=== PATIENT | female | born 1945 | race Caucasian/White ===

== ENCOUNTER → 2023-05-03 | Outpatient (CLI) | payer OTHER ==
[2023-05-03 16:35] LABS: Bun/Creatinine Ratio 20.6 (12.0-20.0); Calcium, Blood 9.4 mg/dL (8.5-10.1); Creatinine, Blood 0.92 mg/dL (0.40-1.00); Potassium, Blood 3.7 mmol/L (3.5-5.5)
== END | disposition home or self-care (01) ==
LOC: LAB SHORT 13:50 → LAB 13:50
PROVIDERS: Family Medicine
DX: R94.4 Abnormal results of kidney function studies (principal)
CPT/HCPCS: 80048

== ENCOUNTER 2024-05-06 13:25 | Day surgery (SDC) | payer OTHER ==
[~2024-05-06] VITALS: Ht 170.2 cm; Wt 71.0 kg
[2024-05-06] MEDS ORDERED: AMLO5 (14:15)
[2024-05-06] MEDS ORDERED: ATOR10 (14:15)
[2024-05-06] MEDS ORDERED: HYDCHL25 (14:16)
[2024-05-06] MEDS ORDERED: LISI20 (14:17)
[2024-05-06] MEDS ORDERED: OMEP20ER (14:18)
[2024-05-06] MEDS ORDERED: Lactated Ringer's 1,000 ML IV ONE ×2 (15:25→15:48)
[2024-05-06] MEDS ORDERED: propofoL 50 ML IV ONE (15:48)
[2024-05-06] MEDS ORDERED: Lidocaine HCl/Pf 1% 5 ML VIAL ONE (15:48)
[2024-05-06 16:48] VITALS: BP 140/64
--- NOTE | 2024-05-06 16:51 | NUR ---
05/06/24 7416 Maritza Holland PT DECLINED REFRESHMENTS, FELT GREAT AND WANTED TO GET HOME.
== END 2024-05-06 16:35 | disposition home or self-care (01) ==
LOC: ORSCSDS 13:25
PROVIDERS: Internal Medicine Gastroenterology
PROC: 0DJ08ZZ Inspection of Upper Intestinal Tract, Via Natural or Artificial Opening Endoscopic (ICD-10-PCS; principal; 2024-05-06 14:30)
DX: R13.10 Dysphagia, unspecified (principal); K44.9 Diaphragmatic hernia without obstruction or gangrene; I12.9 Hypertensive chronic kidney disease with stage 1 through stage 4 chronic kidney disease, or unspecified chronic kidney disease; N18.30 Chronic kidney disease, stage 3 unspecified; K21.9 Gastro-esophageal reflux disease without esophagitis; E78.5 Hyperlipidemia, unspecified; Z87.891 Personal history of nicotine dependence; Z79.899 Other long term (current) drug therapy
CPT/HCPCS: J2001; J2704; J7120

== ENCOUNTER 2025-06-03 10:07 | Day surgery (SDC) | payer OTHER ==
[~2025-06-03] VITALS: Ht 170.2 cm; Wt 69.1 kg
[~2025-06-03 10:07] MED LIST: AMLO5; ATOR10; Balanced Salt Epinephrine Irrigation Solution 500 mL IR SCH; HYDCHL25; LISI20; Moxifloxacin HCL 0.5 MG/0.1 ML 0.4MLSYR LEFTEYE SCH; OMEP20ER; Ondansetron 4 MG SoluTab MM PRN; PHENYLEPHRINE\\TROPICAMIDE\\TETRACAINE OPHTHALMIC DILATING SOLN LEFTEYE PRN; PREG75 PO; Povidone-Iodine 450 DROP/30 ML Solution LEFTEYE SCH; Povidone-Iodine 450 DROP/30 ML Solution ONE; SPIR25 PO; Tetracaine HCl/Pf 0.5% Opth Soln 4 ml ONE; diazePAM 5 MG,diazePAM 2 MG PO SCH
--- NOTE | 2025-06-03 10:28 | NUR ---
06/03/25 Dina8 Deisy Awad CALL LIGHT WITHIN REACH. PT ON CONTINOUS PULSE OXIMETER FOR CLOSE MONITORING.
--- NOTE | 2025-06-03 10:45 | NUR ---
06/03/25 1045 Analia Tee HR:62 RR:16 SP02:96% ON 10L BLOW BY O2 BP:133/65
--- NOTE | 2025-06-03 11:01 | NUR ---
06/03/[address] AT BEDSIDE
[2025-06-03 11:02] VITALS: BP 132/75
== END 2025-06-03 11:18 | disposition home or self-care (01) ==
LOC: ORSCSDS 10:07
PROVIDERS: Student in an Organized Health Care Education/Training Program
PROC: 08RK3JZ Replacement of Left Lens with Synthetic Substitute, Percutaneous Approach (ICD-10-PCS; principal; 2025-06-03 11:30)
DX: H25.812 Combined forms of age-related cataract, left eye (principal); Z96.1 Presence of intraocular lens; H18.513 Endothelial corneal dystrophy, bilateral; I10 Essential (primary) hypertension; Z79.899 Other long term (current) drug therapy; Z87.891 Personal history of nicotine dependence
CPT/HCPCS: A9270; V2632